=== PATIENT | male | born 2000 | race Two or more races ===

== ENCOUNTER → 2024-05-18 | Outpatient (CLI) | payer BC, SELFPAY ==
[2024-05-18 13:59] LABS: Collection Type, Urine Clean Catch; Squamous Epithelial Cell,Urine 0 /hpf (0-5)
[2024-05-18 14:20] LABS: Basophils % (Auto) 1 % (0-2.5); Eosinophils # (Auto) 0.1 Thou/mm3 (0.0-0.5); Eosinophils % (Auto) 1 % (0-10); Hematocrit 50.9 % (41.0-53.0); Hemoglobin 17.4 g/dL (13.5-16.0); Immature Granulocytes % (Auto) 0 % (0-0); Immature Granulocytes Auto 0.02 Thou/mm3 (0.00-0.00); Lymphocytes # (Auto) 1.8 Thou/mm3 (1.0-4.8); Lymphocytes % (Auto) 35 % (10-50); Mean Corpuscular HGB Conc 34.2 g/dl (31.0-37.0); Mean Corpuscular Hemoglobin 28.4 pg (25.0-35.0); Mean Corpuscular Volume 83 fL (80-100); Monocytes # (Auto) 0.3 Thou/mm3 (0.0-0.8); Monocytes % (Auto) 6 % (0-12); Neutrophils # (Auto) 2.9 Thou/mm3 (1.8-7.7); Neutrophils % (Auto) 57 % (37-80); Nucleated Red Blood Cell % 0 /100 WBC (0); Platelet Count 280 Thou/mm3 (140-440); RDW Standard Deviation 37.2 fL (35.1-43.9); Red Blood Count 6.12 Miln/mm3 (4.50-5.90); White Blood Count 5.1 Thou/mm3 (3.8-10.6)
[2024-05-18 14:25] LABS: Bilirubin,Urine Negative (Negative); Blood,Urine Negative (Negative); Clarity,Urine Clear (Clear/Hazy); Color,Urine Lt-Yellow (Lt Yel-Yel); Culture Indicated,Urine Not Indicated; Glucose, Urine Negative (Negative); Ketones,Urine Negative (Negative); Leukocyte Esterase,Urine Negative (Negative); Nitrite,Urine Negative (Negative); Protein,Urine Negative (Neg - Trace); RBC,Urine 2 /hpf (0-3); Specific Gravity,Urine 1.024 (1.001-1.035); Urobilinogen,Urine Negative mg/dL (0.0-1.0); WBC,Urine 1 /hpf (0-5)
[2024-05-18 14:37] LABS: Vitamin D 25 Hydroxy Total 15.1 ng/mL (7.3-40.2)
[2024-05-18 15:26] LABS: Alanine Aminotransferase 41 U/L (10-49); Alkaline Phosphatase 132 U/L (46-116); Anion Gap 8 (7-16); Aspartate Amino Transferase 22 U/L (0-34); BUN/Creatinine Ratio 13 Ratio (12-20); Blood Urea Nitrogen 17 mg/dL (9-23); Calcium 9.9 mg/dL (8.3-10.6); Calcium (Corrected) 9.9 mg/dL (8.5-10.1); Carbon Dioxide 28.1 mMol/L (20.0-31.0); Chloride 104 mMol/L (98-107); Cholesterol 151 mg/dL (132-200); Creatinine (Component) 1.3 mg/dL (0.6-1.3); Globulin 2.5 gm/dL (2.3-3.5); Glucose 93 mg/dL (74-106); Osmolality,Calculated 280 (275-295); Potassium 4.3 mMol/L (3.4-5.1); Sodium 140 mMol/L (136-145); Thyroid Stimulating Hormone 1.04 uIU/mL (0.55-4.78); Total Protein 7.5 gm/dL (5.7-8.2); Triglycerides 115 mg/dL (30-150); eGFR > 60 See Note
[2024-05-18 19:00] LABS: Cardiac Risk Estimate 4.2 RATIO (4.0-6.7); HDL Cholesterol 36 mg/dL (40-60); LDL Cholesterol,Calculated 92 mg/dL (0-130)
== END | disposition home or self-care (01) ==
PROVIDERS: PCP Family Medicine; Referring Provider Family Medicine; Visit Provider Family Medicine
DX: Z00.00 Encounter for general adult medical examination without abnormal findings (principal); M08.00 Unspecified juvenile rheumatoid arthritis of unspecified site; Z13.0 Encounter for screening for diseases of the blood and blood-forming organs and certain disorders involving the immune mechanism; Z13.29 Encounter for screening for other suspected endocrine disorder; Z13.21 Encounter for screening for nutritional disorder; Z13.1 Encounter for screening for diabetes mellitus
CPT/HCPCS: 36415; 80053; 80061; 81001; 82306; 84443; 85025

== ENCOUNTER 2024-12-27 20:37 | Inpatient (IN) | payer BC, SELFPAY ==
[2024-12-27 20:38] VITALS: BMI 31.6
--- NOTE | 2024-12-27 20:44 | EKG_ITS ---
[facility] Test Date: 2024-12-27 Pat Name: ALBERT READ Department: Room: - Gender: Male Rn Ent: : 2000 Requested By: ED Temporary Provider Order Number: [id number] Reading MD: ED Temporary Provider Measurements Intervals [place] Rate: 97 P: 59 OR: 167 QRS: 94 QRSD: 91 T: 46 QT: 315 QTc: 400 Interpretive Statements SINUS RHYTHM BORDERLINE RIGHT AXIS DEVIATION [QRS AXIS > 90] NONSPECIFIC ST & T-WAVE ABNORMALITY No previous ECG available for comparison /store/S0/[id number].pdf
[2024-12-27 21:01] VITALS: BP 135/81; PULSE 96; RESP 18; TEMP 37.8; O2SAT 99
--- NOTE | 2024-12-27 21:16 | XR_ITS ---
Examination: PA chest single view Technique: Upright PA chest single view Date and time: December 27, 2024 2119 hrs. Indications: Onset chest pain today. Findings: Normal heart size. Lungs are clear. The osseous structures are intact Impression: No active disease.
[2024-12-27 22:01] LABS: Basophils # (Auto) 0.0 Thou/mm3 (0.0-0.2); Basophils % (Auto) 1 % (0-2.5); Eosinophils # (Auto) 0.0 Thou/mm3 (0.0-0.5); Eosinophils % (Auto) 0 % (0-10); Hematocrit 49.1 % (41.0-53.0); Hemoglobin 16.4 g/dL (13.5-16.0); Immature Granulocytes Auto 0.06 Thou/mm3 (0.00-0.00); Lymphocytes # (Auto) 1.0 Thou/mm3 (1.0-4.8); Lymphocytes % (Auto) 12 % (10-50); Mean Corpuscular HGB Conc 33.4 g/dl (31.0-37.0); Mean Corpuscular Hemoglobin 28.8 pg (25.0-35.0); Mean Corpuscular Volume 86 fL (80-100); Monocytes # (Auto) 0.8 Thou/mm3 (0.0-0.8); Monocytes % (Auto) 9 % (0-12); Neutrophils # (Auto) 6.4 Thou/mm3 (1.8-7.7); Neutrophils % (Auto) 77 % (37-80); Nucleated Red Blood Cell # 0.00 Thou/mm3 (0.00-0.00); Nucleated Red Blood Cell % 0 /100 WBC (0); Platelet Count 231 Thou/mm3 (140-440); RDW Standard Deviation 39.8 fL (35.1-43.9); Red Blood Count 5.69 Miln/mm3 (4.50-5.90); White Blood Count 8.3 Thou/mm3 (3.8-10.6)
--- NOTE | 2024-12-27 22:04 | EDNOTE_ITS ---
ED Chest Pain RME/HPI General Chief Complaint: Chest Pain Stated Complaint: CHEST PAIN Time Seen by Provider: 12/27/24 21:15 Arrival date/time: 12/27/24 20:37 RME / HPI RME / HPI narrative: See MDM for Dr. Smith's HPI Documentation. Related Data Allergies Allergy/AdvReac Type Severity Reaction Status Date / Time No Known Allergies Allergy Verified 12/27/24 20:44 Review of Systems Review of Systems Systems Reviewed: All systems reviewed, normal except as documented Past Medical History Surgical History SURGICAL: Positive Abdominal Surgery ED Exam Narrative Physical exam: See MDM for Dr. Smith's Physical Exam Documentation. Course Course Course Narrative: CXR was ordered for determining the etiology of shortness of breath. Quality Measures none Orders Category Date Time Status COVID-19 Screening Questionnaire NOW Care 12/27/24 23:02 Active Decision to Admit X1 Care 12/27/24 23:02 Completed EKG (ED ONLY) *Do not use* NOW Care 12/27/24 20:44 Completed Notify provider NOW Care 12/27/24 22:31 Active Saline [Insert IV] NOW Care 12/27/24 22:29 Active Consult to Cardiology Stat Cons 12/27/24 22:29 Ordered EKG (ED Only) Stat Exams 12/27/24 20:44 Draft XR chest 1V portable Stat Exams 12/27/24 21:16 Completed Alcohol, Blood Medical Stat Lab 12/27/24 21:39 Completed BMP [Basic Metabolic Panel] Stat Lab 12/27/24 21:39 Completed BNP [B-Type Natriuretic Peptide] Stat Lab 12/27/24 21:39 Completed CBC Stat Lab 12/27/24 21:39 Completed D-Dimer Stat Lab 12/27/24 21:39 Completed Drug Screen,Urine Stat Lab 12/28/24 01:30 Received Magnesium Stat Lab 12/27/24 21:39 Completed PT [Prothrombin Time with INR] Stat Lab 12/27/24 21:39 Completed PTT [Partial Thromboplastin Time] Stat Lab 12/27/24 21:39 Completed Thyroid Stimulating Hormone Stat Lab 12/27/24 21:39 Completed Troponin I Stat Lab 12/27/24 21:39 Completed Aspirin Chew Med 12/27/24 22:31 Discontinued 324 mg PO X1 ONE Heparin Inj Med 12/27/24 22:31 Discontinued 2,000 unit IV X1 ONE Heparin/D5w 25K 250 ML Ivpb [Heparin in D5w Ivpb] Med 12/27/24 22:45 Active 25,000 unit in 250 ml IV 9.18 units/kg/hr Metoprolol Tartrate [Lopressor] Med 12/27/24 22:31 Discontinued 12.5 mg PO X1 ONE Nitroglycerin Oint 2% [Nitro-paste Oint 2%] Med 12/27/24 22:31 Discontinued 1 inch TOP X1 ONE Vital Signs Vital signs: Vital Signs Temperature 100.1 F 12/27/24 21:01 Pulse Rate 96 12/27/24 21:01 Respiratory Rate 18 12/27/24 21: Blood Pressure 135/81 H 12/27/24 21: Pulse Oximetry (%) 99 12/27/24 21:01 Oxygen Delivery Method Room Air 12/27/24 21:01 Chest Pain MDM Narrative MDM Narrative:: Scribe Attestation: I, Madison Becerra, am scribing for and in the presence of Dr. Smith. Provider Notation: Although this document has been carefully reviewed, there may still be some phonetic and other typographical errors. These errors are purely grammatical due to imperfections in the software program and should not be construed in any way to compromise the substance of the patient's medical care d uring this visit. This section includes all my notes and documentations, including HPI, PE, and ED course. Vinny Smith MD HPI: 24 y/o male presents with left-sided chest pain for a few hours. Worse with breathing. Reports heaviness. No other complaints. ROS: All negative except as documented in HPI. Physical Exam: General: Alert and oriented. No acute distress when remaining still. Eyes: Conjunctivae and lids clear. ENT: No nasal congestion. Neck: Supple. Heart: RRR. Chest: No tenderness. Lungs: No respiratory distress. Good air movement. No rhonchi, wheezing, rales. Abdomen: Soft and nontender. Skin: Warm and dry. Neuro: Alert and oriented X 3. I reviewed all diagnostic test results: My interpretation of the EKG is: Sinus rhythm (97 bpm) with nonspecific ST-T changes. My interpretation of the chest x-ray is: NAD. Blood tests remarkable for Troponin I: 8.275 At this point, diagnoses include: NSTEMI. Treatment here included: Aspirin Chew 324 mg, Heparin bolus and drip, oral Lopressor 12.5 mg, and Nitro-paste Ointment 2%. Chest pain improved to 0/10. 2226: I discussed the case with Dr. Melvin. About the presentation and exam and diagnostics and treatments here. And need of further care in the hospital. Recommended admission to hospitalist service for further care. I discussed the case with our hospitalist. About the presentation and exam and diagnostics and treatments here. And need of further care in the hospital. Will accept the patient. Vinny Smith MD Patient data External records reviewed:: [facility] previous records (Reviewed prior ED records from 12/17/23. Patient was seen for Cellulitis of gluteal region.) Clinical information provided by:: patient Social determinants that could affect healthcare access:: none Patient has the following chronic illnesses:: None reported. How is presenting disease/condition affected by chronic disease/condition?: no chronic disease Evaluation data The following diagnostics were reviewed and interpreted by me:: lab results, radiology exam(s) and EKG tracing(s) (My interpretation of the EKG is: Sinus rhythm (97 bpm) with nonspecific ST-T changes. Vinny Smith MD) Lab and/or radiology exams considered but not ordered:: None Interpretation Summary: I reviewed all diagnostic test results: My interpretation of the EKG is: Sinus rhythm (97 bpm) with nonspecific ST-T changes. My interpretation of the chest x-ray is: NAD. Blood tests remarkable for Troponin I: 8.275 Medications / Prescriptions Medications or Prescriptions considered but not ordered:: None Medication administrations:: Medication Administration History Acetaminophen (Acetaminophen 325 Mg Tablet) 650 mg PO Q6H PRN PRN Reason: Fever >101.5 Stop: 01/26/25 23:19 Acetaminophen (Acetaminophen 325 Mg Tablet) 650 mg PO Q6H PRN PRN Reason: PAIN SCALE 1-3 (mild Stop: 01/26/25 23:19 Aspirin (Aspirin Ec 81 Mg Tabec) 81 mg PO DAILY [facility] Stop: 01/27/25 08:59 Atorvastatin Calcium (Atorvastatin Calcium 20 Mg Tablet) 80 mg PO HS [facility] Stop: 01/27/25 20:59 Clopidogrel Bisulfate (Clopidogrel Bisulfate 75 Mg Tablet) 75 mg PO QDAY [facility] Stop: 01/27/25 08:59 Heparin Sodium/Dextrose (Heparin In D5w Ivpb) 25,000 unit in 250 mls @ 9.994 mls/hr IV .Q24H [facility]; Protocol Stop: 01/10/25 22:44 Last Admin: 12/28/24 00:28 Dose: 9.18 units/kg/hr, 9.994 mls/hr Documented By: DICK Co-signed By: ELOISA Magnesium Sulfate (Magnesium Sulfate Ivpb) 4 gm in 50 mls @ 12.5 mls/hr IV X1 ONE Stop: 12/28/24 03:22 Last Admin: 12/27/24 23:37 Dose: 12.5 mls/hr Documented By: DICK Metoprolol Tartrate (Metoprolol Tartrate 25 Mg Tablet) 25 mg PO BID [facility] Stop: 01/26/25 23:29 Last Admin: 12/27/24 23:37 Dose: Not Given Documented By: DICK Non-Admin Reason: Duplicate Medication on eMAR Morphine Sulfate (Morphine Sulf Inj 10 Mg/Ml Vial) 2 mg IVP Q2H PRN PRN Reason: PAIN SCALE 7-10 (Severe Stop: 01/01/25 23:19 Oxycodone/Acetaminophen (Oxycodone/Apap 5/325 Tablet) 1 tab PO Q6H PRN PRN Reason: PAIN SCALE 4-6 (Moderate Stop: 01/01/25 23:19 Discontinued Medications Aspirin (Aspirin 81 Mg Chew) 324 mg PO X1 ONE Stop: 12/27/24 22:32 Last Admin: 12/27/24 22:57 Dose: 324 mg Documented By: DICK Aspirin (Aspirin 325 Mg Tablet) 325 mg PO X1 ONE Stop: 12/27/24 23:26 Last Admin: 12/27/24 23:37 Dose: Not Given Documented By: DICK Non-Admin Reason: Duplicate Medication on eMAR Heparin Sodium (Porcine) (Heparin Sod Inj 5000 Unit/Ml Vial) 2,000 unit IV X1 ONE; Protocol Stop: 12/27/24 22:32 Heparin Sodium (Porcine) (Heparin Sod Inj 5000 Unit/Ml Vial) 4,000 unit IV X1 ONE Stop: 12/28/24 01:01 Last Admin: 12/28/24 01:21 Dose: 4,000 unit Documented By: DICK Co-signed By: WALLACE Sodium Chloride (Ns) 1,000 mls @ 60 mls/hr IV .[id number] [facility] Stop: 01/26/25 23:44 Last Admin: 12/27/24 23:38 Dose: 60 mls/hr Documented By: DICK Sodium Chloride (Ns) 2,000 mls @ 999 mls/hr IV .Q2H1M ONE Stop: 12/28/24 01:57 Last Admin: 12/28/24 00:42 Dose: 999 mls/hr Documented By: DICK Metoprolol Tartrate (Metoprolol Tartrate 25 Mg Tablet) 12.5 mg PO X1 ONE Stop: 12/27/24 22:32 Last Admin: 12/27/24 22:57 Dose: 12.5 mg Documented By: DICK Nitroglycerin (Nitroglycerin Oint 2% 1 Inch Packet) 1 inch TOP X1 ONE Stop: 12/27/24 22:32 Last Admin: 12/27/24 22:57 Dose: 1 inch Documented By: DICK Treatment from me here included: Aspirin Chew 324 mg, Heparin bolus and drip, oral Lopressor 12.5 mg, and Nitro-paste Ointment 2%. Consultations Consultation(s) initiated? (list below): Yes Consultation #1 (Physician, Specialty, Details): I discussed the case with Dr. Melvin. About the presentation and exam and diagnostics and treatments here. And need of further care in the hospital. Recommend admission to hospitalist service for further care. Time: 22:26 Consultation #2 (Physician, Specialty, Details): I discussed the case with our hospitalist. About the presentation and exam and diagnostics and treatments here. And need of further care in the hospital. Will accept the patient. Diagnosis Chest Pain Differential Diagnosis: stable angina, unstable angina pectoris, atypical chest pain, st elevation myocardial infarction, costochondritis, chest pain and biliary colic Most likely diagnosis given after review of the tests above:: NSTEMI Admission Indicated Admission indicated?: indicated Explain why admission is indicated or not indicated:: NSTEMI Admission Request Was there a request for admission?: Yes Admission Attestation Admission request attestation: Discussed case with Hospitalist service regarding admission. Discussed patients ED course, exam findings, labs, and radiology results. The Hospitalist [agrees] to accept the patient for admission. Disposition Plan Disposition Plan: Admit Critical Care Time Critical Care Time Critical Care Time: Yes Total Critical Care Time (min.): 36 Attestation: Due to a high probability of clinically significant, life threatening deterioration, the patient required my highest level of preparedness to intervene emergently and I personally spent this critical care time directly and personally managing the patient. This critical care time included obtaining a history; examining the patient; ordering and review of studies; arranging urgent treatment with development of a management plan; evaluation of patient's response to treatment; frequent reassessment; and discussions with family and other providers. It was exclusive of separately billable procedures and treating other patients and teaching time. Vinny Smith MD Discharge Plan Plan Patient Disposition: Admit Acute Care w/in Hospital Problem List Clinical Impression: Non-ST elevation [place] (NSTEMI)
[2024-12-27 22:13] LABS: B-Type Natriuretic Peptide 36 pg/mL (0-100)
[2024-12-27 22:17] LABS: Anion Gap 10 (7-16); BUN/Creatinine Ratio 8 Ratio (12-20); Blood Urea Nitrogen 12 mg/dL (9-23); Calcium 9.2 mg/dL (8.3-10.6); Carbon Dioxide 27.5 mMol/L (20.0-31.0); Chloride 104 mMol/L (98-107); Creatinine (Component) 1.6 mg/dL (0.6-1.3); Estimated Creatinine Clearance 91.3 mL/min (>60); Glucose 95 mg/dL (74-106); Magnesium 1.8 mg/dL (1.6-2.6); Osmolality,Calculated 280 (275-295); Potassium 4.0 mMol/L (3.4-5.1); Sodium 141 mMol/L (136-145); eGFR > 60 See Note
[2024-12-27 22:21] LABS: Troponin I 8.275 ng/mL (0.0-0.045)
[2024-12-27 22:28] LABS: D-Dimer < 250 ng/mL (<600)
[2024-12-27 22:46] VITALS: BP 136/80; PULSE 106; RESP 17; TEMP 37.2; O2SAT 100
[2024-12-27 22:57] VITALS: BP 136/80; PULSE 105; PULSE 108
[2024-12-27] MEDS: NITROGLYCERIN OINT 2% 1 INCH PACKET TOP (22:57)
[2024-12-27] MEDS: ASPIRIN 81 MG CHEW 324 MG PO (22:57)
[2024-12-27] MEDS: METOPROLOL TARTRATE 25 MG TABLET 12.5 MG PO (22:57)
[2024-12-27 23:21] LABS: Alcohol, Blood Medical < 3.0 mg/dL (0-10.0); Thyroid Stimulating Hormone 0.84 uIU/mL (0.55-4.78)
--- NOTE | 2024-12-27 23:31 | ESHP_ITS ---
<Statement entered by Bebe Conway MD - 12/28/24 01:08> Otherwise healthy 24-year-old male with no significant medical history, presenting with typical chest pain, admitted for acute coronary syndrome with troponin around 8, and nonspecific ST changes on EKG. He has been on weekly TESTOSTERONE injection for the last 2 months for work enhancement. Never had similar episodes in the past. No family history of cardiac disease. He admits to using vape for the last 5 years, and occasional alcohol. Denies illicit drug use. Cardiology was consulted and recommended HEPARIN ACS protocol, with likely cath tomorrow. I?ve reviewed the note and agree with the resident's assessment and plan, with the exceptions outlined above. I personally went over the labs, imaging, home medications, and prior records, and examined the patient. The case was also reviewed with the attending physician. Please note: this document was transcribed using voice recognition technology; minor inaccuracies may be present. Bebe Conway DO PGY II Documentation for date of: 12/27/24 HPI History of Present Illness Chief complaint: CHEST PAIN History of present illness: Mr. Mota is a 24-year-old significant past medical history, presented to the ED 12/27/2024 with chief complaint of chest pain. Patient reports a dull retrosternal chest pain that radiates to left arm that occurred after waking up from a evening nap at 7pm. Rates the pain intensity a 7-8/10 lasting about 1 hour. Never had this pain in the past. Patient reported chest pain improved upon arriving to the emergency department. Denies excessive caffeine intake, energy drink, exercise supplement. However, patient has been taking testosterone for the past 2 months 0.5 to 1cc per week. Patient is also endorses shortness of breath but denies lightheadedness, weakness, palpitations, abdominal pain and urinary changes. ED Course: -Initial vitals were BP 133/90, pulse 113, temp 97.8, O2 sat 100% room air -Labs significant for Hgb 16.4, PT 13.4, CR 1.6, troponin 8.275 -Imaging included EKG showed nonspecific ST- T wave abnormality, chest x-ray showed no acute disease. -In the ED, patient was given aspirin 325 mg X1, metoprolol 3.5mg x1, nitroglycerin, magnesium sulfate, 1L NS -Patient was admitted for chest pain workup and management Review of Systems Review of systems otherwise negative except what is mentioned above. Past Medical History: none Family History: Noncontributory Surgical History: Apparently been negative Social History: Denies history of smoking, denies recreational drug use, occasional social drinker Current Medications: (Source: ) Allergies: No known drug allergies Exam Vital Signs Temp Pulse Resp BP Pulse Ox O2 Del Method 99.0 F 105 H 17 136/80 H 100 Room Air 12/27/24 22:46 12/27/24 22:57 12/27/24 22:46 12/27/24 22:57 12/27/24 22:46 12/27/24 22:46 Narrative Exam General: Alert, no acute distress.Conversational and non-toxic appearing. Skin: Warm, dry, intact. No rash or ecchymoses. Head: Normocephalic, atraumatic. Eye: Normal conjunctiva, PERRL. Throat: Oral mucosa moist. No obvious lesions in oropharynx. Cardiovascular: Regular rate and rhythm, no murmur, +S1/S2. Respiratory: Lungs are clear to auscultation, respirations unlabored, no crackles, no wheezing. Gastrointestinal: Soft, nontender, non-distended. No guarding or rebound tenderness. Extremities: No edema, no cyanosis, no clubbing. Neuro: Alert and oriented x3.No focal deficits observed. Conversant, moving all extremities. No overt cerebellar signs/incoordination. Psychiatric: Cooperative, appropriate affect Results: Labs 12/27/24 21:39 12/27/24 21:39 Labs: Short CBC 12/27/24 Range/Units 21:39 WBC 8.3 (3.8-10.6) Thou/mm3 Hgb 16.4 H (13.5-16.0) g/dL Hct 49.1 (41.0-53.0) % Plt Count 231 (140-440) Thou/mm3 BMP 12/27/24 21:39 Sodium 141 Potassium 4.0 Chloride 104 Carbon Dioxide 27.5 BUN 12 Creatinine 1.6 H Glucose 95 Calcium 9.2 Cardiac Enzymes 12/27/24 Range/Units 21:39 Troponin I 8.275 H* (0.0-0.045) ng/mL Quality Measures Quality Measures none Medications Home Medications and Allergies Home Medications ?Medication ?Instructions ?Recorded ?Confirmed ?Type methocarbamol 750 mg tablet 750 mg PO QID PRN muscle s pasm 12/28/24 12/28/24 History Allergies Allergy/AdvReac Type Severity Reaction Status Date / Time No Known Allergies Allergy Verified 12/27/24 20:44 Visit Medications Acetaminophen (Acetaminophen 325 Mg Tablet) 650 mg PO Q6H PRN PRN Reason: Fever >101.5 Stop: 01/26/25 23:19 Acetaminophen (Acetaminophen 325 Mg Tablet) 650 mg PO Q6H PRN PRN Reason: PAIN SCALE 1-3 (mild Stop: 01/26/25 23:19 Aspirin (Aspirin 325 Mg Tablet) 325 mg PO X1 ONE Stop: 12/27/24 23:26 Aspirin (Aspirin Ec 81 Mg Tabec) 81 mg PO DAILY [facility] Stop: 01/27/25 08:59 Atorvastatin Calcium (Atorvastatin Calcium 20 Mg Tablet) 80 mg PO HS [facility] Stop: 01/27/25 20:59 Clopidogrel Bisulfate (Clopidogrel Bisulfate 75 Mg Tablet) 75 mg PO QDAY [facility] Stop: 01/27/25 08:59 Heparin Sodium (Porcine) (Heparin Sod Inj 5000 Unit/Ml Vial) 2,000 unit IV X1 ONE; Protocol Stop: 12/27/24 22:32 Heparin Sodium/Dextrose (Heparin In D5w Ivpb) 25,000 unit in 250 mls @ 13.063 mls/hr IV .Q19H9M [facility]; Protocol Stop: 01/10/25 22:44 Magnesium Sulfate (Magnesium Sulfate Ivpb) 4 gm in 50 mls @ 12.5 mls/hr IV X1 ONE Stop: 12/28/24 03:22 Metoprolol Tartrate (Metoprolol Tartrate 25 Mg Tablet) 25 mg PO BID [facility] Stop: 01/26/25 23:29 Morphine Sulfate (Morphine Sulf Inj 10 Mg/Ml Vial) 2 mg IVP Q2H PRN PRN Reason: PAIN SCALE 7-10 (Severe Stop: 01/01/25 23:19 Oxycodone/Acetaminophen (Oxycodone/Apap 5/325 Tablet) 1 tab PO Q6H PRN PRN Reason: PAIN SCALE 4-6 (Moderate Stop: 01/01/25 23:19 Discontinued Medications Aspirin (Aspirin 81 Mg Chew) 324 mg PO X1 ONE Stop: 12/27/24 22:32 Last Admin: 12/27/24 22:57 Dose: 324 mg Metoprolol Tartrate (Metoprolol Tartrate 25 Mg Tablet) 12.5 mg PO X1 ONE Stop: 12/27/24 22:32 Last Admin: 12/27/24 22:57 Dose: 12.5 mg Nitroglycerin (Nitroglycerin Oint 2% 1 Inch Packet) 1 inch TOP X1 ONE Stop: 12/27/24 22:32 Last Admin: 12/27/24 22:57 Dose: 1 inch Assessment & Plan Plan Mr. Mota is a 24-year-old significant past medical history, presented to the ED 12/27/2024 with chief complaint of chest pain for 1 day. Admitted for ACS work up and management. #Acute chest pain, rule out ACS #NSTEMI type I vs type II #Elevated troponin NSTEMI VS vasospastic angina Chest pain is likely due vasospasm angina, as the patient symptoms occurred after rest and he is young adult without typical atherosclerosis risk factors. Likely NSTEMI type II patient history exogenous testosterone use which can cause polycytemia, pro-thrombotic state and potentially vasospasm, all which may contribute to increase myocardial oxygen demand which may lead to myocardial ischemia. On admission: Troponin was 8.275 . EKG showed nonspecific ST- T wave abnormality. Patient presented with retrosternal dull chest pain that improved an admission. Plan ? Started HEPARIN drip ACS protocol ? Started PLAVIX 75 mg daily -Trend troponins -Cardiac echo -Cardiology consulted , appreciate recommendations - aspirin 81 mg p.o. daily, - Atorvastatin 80 mg p.o. -Lipid panel -Hemoglobin A1c -TSH level -Follow-up urinalysis - Maintain potassium >4.0 and magnesium >2.0 # Acute kidney injury, likely pre-renal On admission creatinine 1.6 (baseline 1.1). SKYLAR likely pre-renal secondary to dehydration. Plan - Started IV NS hydration -Avoid nephrotoxins -Monitor renal panel #Polycythemia #Steroid Abuse Nancy has been taking Testesterone for 2 months for body building Explained risks and complications of Testosterone use. Advised to immediately stop recreational use. Hospital management: Lines: peripheral IV Diet: regular GI prophylaxis: none DVT prophylaxis: HEPARIN Disposition: tele for NSTEMI workup and management. CODE STATUS: Full code Patient seen and assessed under supervision of attending physician and discuss with senior resident Dr. Conway PGY-2 Benita David MD PGY-1, Internal Medicine Attending Provider Attestation/Addendum After examination of the patient and review of the clinical data I feel that this patient needs admission to the hospital for further treatment/evaluation. I Solo Garcia MD, attest that I was physically present for roque portions of evaluation, and examined patient, labs and imagings and plan of care were discussed with IM residents team, and I agree with the findings and plans documented above.
[2024-12-27] MEDS: Magnesium Sulfate 4 GM Ivpb 4 GM/50 ML BAG IV (23:37)
[2024-12-27] MEDS: SODIUM CHLORIDE 0.9% 1000 ML 1,000 ML 60 ML IV (23:38)
[2024-12-27 23:47] LABS: INR 1.2 (0.9-1.3); Partial Thromboplastin Time 28.4 Seconds (22.0-36.0); Prothrombin Time 13.4 Seconds (9.0-12.2)
[2024-12-28] VITALS (18 sets, daily range): BP systolic 97–136; BP diastolic 51–81; PULSE 75–100; RESP 12–98; TEMP 36.4–38.1; O2SAT 95–99; BMI 31.8
[2024-12-28 00:19] LABS: Troponin I 8.323 ng/mL (0.0-0.045)
[2024-12-28] MEDS: Heparin/D5w 25K 250 ML Ivpb 25,000 UNIT/250 ML BAG 9.994 UNIT IV (00:28)
[2024-12-28] MEDS: SODIUM CHLORIDE 0.9% 1000 ML 2,000 ML 999 ML IV (00:42)
[2024-12-28] MEDS: HEPARIN SOD INJ 5000 UNIT/ML VIAL 4000 UNIT IV (01:21)
[2024-12-28 01:51] LABS: Collection Type, Urine Clean Catch; Squamous Epithelial Cell,Urine 0 /hpf (0-5); WBC,Urine 0 /hpf (0-5)
[2024-12-28 02:04] LABS: Amorphous Crystals,Urine Present (Absent); Bilirubin,Urine Negative (Negative); Blood,Urine Negative (Negative); Clarity,Urine Clear (Clear/Hazy); Color,Urine Yellow (Lt Yel-Yel); Glucose, Urine Negative (Negative); Ketones,Urine Negative (Negative); Leukocyte Esterase,Urine Negative (Negative); Nitrite,Urine Negative (Negative); PH,Urine 6.5 (5.0-7.0); Protein,Urine Trace (Neg - Trace); RBC,Urine 1 /hpf (0-3); Specific Gravity,Urine 1.032 (1.001-1.035); Urobilinogen,Urine 3.0 mg/dL (0.0-1.0)
[2024-12-28 03:04] LABS: Amphetamine/Methamp Scrn,U Negative (Negative); Barbiturate Screen,Urine Negative (Negative); Benzodiazepines Screen,Urine Negative (Negative); Benzoylecgonine Screen, Ur Negative (Negative); Fentanyl Screen,Urine Negative (Negative); Opiate Screen,Urine Negative (Negative); THC Screen,Urine Negative (Negative)
[2024-12-28 06:37] LABS: Basophils # (Auto) 0.0 Thou/mm3 (0.0-0.2); Basophils % (Auto) 1 % (0-2.5); Eosinophils # (Auto) 0.0 Thou/mm3 (0.0-0.5); Eosinophils % (Auto) 1 % (0-10); Hematocrit 45.6 % (41.0-53.0); Hemoglobin 15.3 g/dL (13.5-16.0); Immature Granulocytes Auto 0.07 Thou/mm3 (0.00-0.00); Lymphocytes # (Auto) 1.8 Thou/mm3 (1.0-4.8); Lymphocytes % (Auto) 24 % (10-50); Mean Corpuscular HGB Conc 33.6 g/dl (31.0-37.0); Mean Corpuscular Hemoglobin 29.1 pg (25.0-35.0); Mean Corpuscular Volume 87 fL (80-100); Monocytes # (Auto) 1.0 Thou/mm3 (0.0-0.8); Monocytes % (Auto) 13 % (0-12); Neutrophils # (Auto) 4.8 Thou/mm3 (1.8-7.7); Neutrophils % (Auto) 61 % (37-80); Nucleated Red Blood Cell # 0.00 Thou/mm3 (0.00-0.00); Nucleated Red Blood Cell % 0 /100 WBC (0); Platelet Count 193 Thou/mm3 (140-440); RDW Standard Deviation 40.3 fL (35.1-43.9); Red Blood Count 5.26 Miln/mm3 (4.50-5.90); White Blood Count 7.8 Thou/mm3 (3.8-10.6)
[2024-12-28 06:53] LABS: Glucose Estimated Average 103 mg/dL (80-131); Hemoglobin A1C 5.2 % Hgb (4.8-6.0)
[2024-12-28 06:58] LABS: Partial Thromboplastin Time 33.3 Seconds (22.0-36.0)
[2024-12-28 07:04] LABS: Alanine Aminotransferase 27 U/L (10-49); Albumin, Serum 3.9 gm/dL (3.5-5.0); Albumin/Globulin Ratio 2.0 (1.2-2.2); Alkaline Phosphatase 93 U/L (46-116); Anion Gap 8 (7-16); Aspartate Amino Transferase 52 U/L (0-34); BUN/Creatinine Ratio 8 Ratio (12-20); Bilirubin,Total 0.8 mg/dL (0.3-1.2); Blood Urea Nitrogen 10 mg/dL (9-23); Calcium 8.7 mg/dL (8.3-10.6); Calcium (Corrected) 8.8 mg/dL (8.5-10.1); Carbon Dioxide 27.2 mMol/L (20.0-31.0); Cardiac Risk Estimate 5.3 RATIO (4.0-6.7); Chloride 106 mMol/L (98-107); Cholesterol 121 mg/dL (132-200); Creatinine (Component) 1.2 mg/dL (0.6-1.3); Estimated Creatinine Clearance 122.0 mL/min (>60); Globulin 2.0 gm/dL (2.3-3.5); Glucose 98 mg/dL (74-106); HDL Cholesterol 23 mg/dL (40-60); LDL Cholesterol,Calculated 73 mg/dL (0-130); Magnesium 2.0 mg/dL (1.6-2.6); Osmolality,Calculated 280 (275-295); Phosphorous 2.9 mg/dL (2.4-5.1); Potassium 4.2 mMol/L (3.4-5.1); Sodium 141 mMol/L (136-145); Total Protein 5.9 gm/dL (5.7-8.2); Triglycerides 125 mg/dL (30-150); eGFR > 60 See Note
[2024-12-28 07:11] LABS: Troponin I 8.237 ng/mL (0.0-0.045)
[2024-12-28] MEDS: HEPARIN SOD INJ 5000 UNIT/ML VIAL 4000 UNIT IVP (07:25)
--- NOTE | 2024-12-28 07:33 | ESCONSULT_ITS ---
HPI Data of Consult Requesting Physician: Solo Garcia MD Primary Care Provider: Eric Bonilla MD Consult Narrative History of present illness: This is a is a 24-year-old with no significant past medical history Patient was seen in the emergency room with precordial chest pain pressure heaviness sensation over the retrosternal region Initial EKG does not show any acute ST-T wave changes So far troponin peaked at 8 cardiology consultation requested Currently patient denies any chest pain appears comfortable No prior cardiac history noted patient is not on any home medication cc:: cc: Solo Garcia MD Meds Home Medications and Allergies Home Medications ?Medication ?Instructions ?Recorded ?Confirmed ?Type methocarbamol 750 mg tablet 750 mg PO QID PRN muscle s pasm 12/28/24 12/28/24 History Allergies Allergy/AdvReac Type Severity Reaction Status Date / Time No Known Allergies Allergy Verified 12/27/24 20:44 Exam Vital Signs Temp Pulse Resp BP Pulse Ox O2 Del Method 98.9 F 79 21 H 113/51 L 97 Room Air 12/28/24 04:00 12/28/24 04:00 12/28/24 04:00 12/28/24 04:00 12/28/24 04:00 12/28/24 04:00 Routine HEENT Exam Head: Present normocephalic and atraumatic Eye: Present EOMI and PERRL ENT: Present mucous membranes moist Routine Neck Exam Neck: Present supple and trachea midline Routine Respiratory Exam Respiratory: Present chest non-tender, lungs clear, normal breath sounds and no resp distress Routine Cardiovascular Exam Cardiovascular: Present RRR Routine Abdominal Exam Abdominal: Present soft and normoactive bowel sounds Routine Extremities Exam Extremities: Present full ROM Routine Skin Exam Skin: Present intact, dry and warm Routine Neurological Exam Neurological: Present alert, oriented X3 and CN II-XII intact Routine Psychiatric Exam Psychiatric: Present normal affect and normal thought process Results Labs 12/28/24 06:18 12/28/24 06:18 Labs: Short CBC 12/27/24 12/28/24 Range/Units 21:39 06:18 WBC 8.3 7.8 (3.8-10.6) Thou/mm3 Hgb 16.4 H 15.3 (13.5-16.0) g/dL Hct 49.1 45.6 (41.0-53.0) % Plt Count 231 193 D (140-440) Thou/mm3 BMP 12/27/24 12/28/24 21:39 06:18 Sodium 141 141 Potassium 4.0 4.2 Chloride 104 106 Carbon Dioxide 27.5 27.2 BUN 12 10 Creatinine 1.6 H 1.2 Glucose 95 98 Calcium 9.2 8.7 Cardiac Enzymes 12/27/24 12/27/24 12/28/24 Range/Units 21:39 23:50 06:18 Troponin I 8.275 H* 8.323 H* 8.237 H* (0.0-0.045) ng/mL Liver Function 12/28/24 Range/Units 06:18 Total Bilirubin 0.8 (0.3-1.2) mg/dL AST 52 H (0-34) U/L ALT 27 (10-49) U/L Alkaline Phosphatase 93 (46-116) U/L Albumin 3.9 (3.5-5.0) gm/dL Urine 12/28/24 Range/Units 01:30 Urine Color Yellow (Lt Yel-Yel) Urine Clarity Clear (Clear/Hazy) Urine pH 6.5 (5.0-7.0) Ur Specific [place] 1.032 (1.001-1.035) Urine Protein Trace (Neg - Trace) Urine Glucose (UA) Negative (Negative) Assessment and Plan Assessment and plan (1) Non-ST elevation [place] (NSTEMI): Status: Acute (2) Chest pain: Status: Acute (3) Coronary artery disease: Status: Acute Additional Assessment & Plan Additional Plan: Patient was admitted with chest pain 7 out of 10 intensity So far troponin peaked at 8 EKG does not show any acute ST-T wave changes Recommend echocardiographic exam We will plan for cardiac catheterization and coronary angiogram
--- NOTE | 2024-12-28 07:44 | ESPR_ITS ---
<Statement entered by Catie Aguilera MD - 12/28/24 16:49> Patient seen and examined at bedside. Patient denies any chest pain or numbness in his left arm. Patient does state he uses testosterone a few times however denies any strong cardiac family history. Patient states that his chest pain and numbness woke him up from his sleep last night, and this was the first time he experienced this. Troponin peaked at 8.237 and now down trended to 1.2. Patient is pending echocardiogram with Dr. Melvin as well as echocardiogram. Will continue with aspirin, atorvastatin, Plavix, heparin drip, until further cardiac recommendations. I discussed with and supervised the spring intern physician who took care of this patient. I personally saw and examined the patient and discussed the assessment and plan with the entire medicine team, including my attending Dr. Olivas, I agree with most of the assessment and plan as documented below Catie Aguilera M.D. PGY-3 Disclaimer: Despite multiple revisions, due to the dictation software being used, the document bellow may not be free of grammatical errors including phonetic/typographic errors. However, this does not deter from our commitment to providing health care in the patient's best interest in mind. <Statement entered by Alicia Plaza MD - 12/28/24 14:47> Note reviewed, I agree with most of its contents and agree with the patient's care as documented by Dr. Butterfield. Patient examined at bedside. Has no major complaints states that he has complete resolution of initial resenting symptoms. Creatinine down trended since admission to 1.2, troponins peaked at 8.237. No new onset of chest pain or shortness of breath. Was lying comfortably in bed. Father was at bedside who denied any significant cardiac family history. Patient denies any symptoms like this in the past and is typically physically active with going to the gym. Chest pain had started in the evening and woke him from sleep. He denies any illicit drug use or excessive drinking or smoking. Does endorse testosterone use which may be a risk factor to ACS. Cardiology Dr. Melvin was consulted. Patient will undergo coronary angiogram this afternoon. Echo is also pending. Continue aspirin, atorvastatin, Plavix, heparin drip. The patient's management plan was discussed with my attending physician Dr. Olivas. Alicia Plaza, PGY-2 Documentation for date of: 12/28/24 Subjective Subjective Interval history: 12/28/24: No acute events overnight. Vital signs stable. Patient was examined and evaluated at bedside. Patient states that he woke up from his evening nap yesterday around 7 pm with sharp left sided chest pain with radiation to left arm which all resolved prior to his ED arrival. Patient and father at bedside denied any family history of cardiac pathologies. Patient remains asymptomatic with no chest pain or dyspnea. Unremarkable physical exam. Exam Vital Signs Temp Pulse Resp BP Pulse Ox O2 Del Method 98.9 F 79 21 H 113/51 L 97 Room Air 12/28/24 04:00 12/28/24 04:00 12/28/24 04:00 12/28/24 04:00 12/28/24 04:00 12/28/24 04:00 Narrative Exam General: Alert, no acute distress.Conversational and non-toxic appearing. Skin: Warm, dry, intact. No rash or ecchymoses. Head: Normocephalic, atraumatic. Eye: Normal conjunctiva, PERRL. Throat: Oral mucosa moist. No obvious lesions in oropharynx. Cardiovascular: Regular rate and rhythm, no murmur, +S1/S2. Respiratory: Lungs are clear to auscultation, respirations unlabored, no crackles, no wheezing. Gastrointestinal: Soft, nontender, non-distended. No guarding or rebound tenderness. Extremities: No edema, no cyanosis, no clubbing. Neuro: Alert and oriented x3.No focal deficits observed. Conversant, moving all extremities. No overt cerebellar signs/incoordination. Psychiatric: Cooperative, appropriate affect Objective Labs 12/29/24 05:18 12/29/24 05:18 Labs: Laboratory Results - last 24 hr 12/27/24 12/27/24 12/28/24 21:39 23:50 01:30 WBC 8.3 RBC 5.69 Hgb 16.4 H Hct 49.1 MCV 86 MCH 28.8 MCHC 33.4 RDW Std Deviation 39.8 Plt Count 231 Neut % (Auto) 77 Lymph % (Auto) 12 [place] % (Auto) 9 Eos % (Auto) 0 Baso % (Auto) 1 Neut # (Auto) 6.4 Lymph # (Auto) 1.0 [place] # (Auto) 0.8 Eos # (Auto) 0.0 Baso # (Auto) 0.0 Immature Gran # (Auto) 0.06 H Absolute Nucleated RBC 0.00 Immature Gran % 1 H Nucleated RBC % 0 PT 13.4 H INR 1.2 APTT 28.4 D-Dimer < 250 Sodium 141 Potassium 4.0 Chloride 104 Carbon Dioxide 27.5 Anion Gap 10 BUN 12 Creatinine 1.6 H Estim Creat Clear Calc 91.3 eGFR > 60 BUN/Creatinine Ratio 8 L Glucose [address] Glu mg/dL Hemoglobin A1c Calculated Osmolality 280 Calcium 9.2 Corrected Calcium Phosphorus Magnesium 1.8 Total Bilirubin AST ALT Alkaline Phosphatase Troponin I 8.275 H* 8.323 H* B-Natriuretic Peptide 36 Total Protein Albumin Globulin Albumin/Globulin Ratio Triglycerides Cholesterol LDL Cholesterol, Calc HDL Cholesterol Cholesterol/HDL Ratio TSH 0.84 Ur Collection Type Clean Catch Urine Color Yellow Urine Clarity Clear Urine pH 6.5 Ur Specific [place] 1.032 Urine Protein Trace Urine Glucose (UA) Negative Urine Ketones Negative Urine Blood Negative Urine Nitrite Negative Urine Bilirubin Negative Urine Urobilinogen (Auto) 3.0 Ur Leukocyte Esterase Negative Urine RBC 1 Urine WBC 0 Ur Squamous Epith Cells 0 Amorphous Crystals Present A Urine Bacteria None Urine Opiates Screen Negative Urine Fentanyl Screen Negative Ur Barbiturates Screen Negative U Amphetamin/Meth Scrn Negative U Benzodiazepines Scrn Negative U Cocaine Metab Screen Negative U Marijuana (THC) Screen Negative Ethyl Alcohol < 3.0 12/28/24 06:18 WBC 7.8 RBC 5.26 Hgb 15.3 Hct 45.6 MCV 87 MCH 29.1 MCHC 33.6 RDW Std Deviation 40.3 Plt Count 193 D Neut % (Auto) 61 Lymph % (Auto) 24 [place] % (Auto) 13 H Eos % (Auto) 1 Baso % (Auto) 1 Neut # (Auto) 4.8 Lymph # (Auto) 1.8 [place] # (Auto) 1.0 H Eos # (Auto) 0.0 Baso # (Auto) 0.0 Immature Gran # (Auto) 0.07 H Absolute Nucleated RBC 0.00 Immature Gran % 1 H Nucleated RBC % 0 PT INR APTT 33.3 D-Dimer Sodium 141 Potassium 4.2 Chloride 106 Carbon Dioxide 27.2 Anion Gap 8 BUN 10 Creatinine 1.2 Estim Creat Clear Calc 122.0 eGFR > 60 BUN/Creatinine Ratio 8 L Glucose [address] Glu mg/dL 103 Hemoglobin A1c 5.2 Calculated Osmolality 280 Calcium 8.7 Corrected Calcium 8.8 Phosphorus 2.9 Magnesium 2.0 Total Bilirubin 0.8 AST 52 H ALT 27 Alkaline Phosphatase 93 Troponin I 8.237 H* B-Natriuretic Peptide Total Protein 5.9 Albumin 3.9 Globulin 2.0 L Albumin/Globulin Ratio 2.0 Triglycerides 125 Cholesterol 121 L LDL Cholesterol, Calc 73 HDL Cholesterol 23 L Cholesterol/HDL Ratio 5.3 TSH Ur Collection Type Urine Color Urine Clarity Urine pH Ur Specific [place] Urine Protein Urine Glucose (UA) Urine Ketones Urine Blood Urine Nitrite Urine Bilirubin Urine Urobilinogen (Auto) Ur Leukocyte Esterase Urine RBC Urine WBC Ur Squamous Epith Cells Amorphous Crystals Urine Bacteria Urine Opiates Screen Urine Fentanyl Screen Ur Barbiturates Screen U Amphetamin/Meth Scrn U Benzodiazepines Scrn U Cocaine Metab Screen U Marijuana (THC) Screen Ethyl Alcohol Quality Measures Quality Measures none Assessment & Plan Assessment Current Active Medications: Generic Name Dose Route Start Last Admin Trade Name Freq PRN Reason Stop Dose Admin Acetaminophen 650 mg 12/27/24 23:20 Acetaminophen 325 Mg Tablet PO 01/26/25 23:19 Q6H PRN Fever >101.5 Acetaminophen 650 mg 12/27/24 23:20 Acetaminophen 325 Mg Tablet PO 01/26/25 23:19 Q6H PRN PAIN SCALE 1-3 (mild Aspirin 81 mg 12/28/24 09:00 Aspirin Ec 81 Mg Tabec PO 01/27/25 08:59 DAILY [facility] Atorvastatin Calcium 80 mg 12/28/24 21:00 Atorvastatin Calcium 20 Mg Tablet PO 01/27/25 20:59 HS [facility] Clopidogrel Bisulfate 75 mg 12/28/24 09:00 Clopidogrel Bisulfate 75 Mg Tablet PO 01/27/25 08:59 QDAY [facility] Heparin Sodium/Dextrose 25,000 unit in 250 mls @ 9.994 mls/hr 12/27/24 22:45 12/28/24 07:30 Heparin In D5w Ivpb IV 01/10/25 22:44 13.18 units/kg/hr .Q24H BRAYDON 14.348 mls/hr Titration Protocol 9.18 UNITS/KG/HR Metoprolol Tartrate 25 mg 12/27/24 23:30 12/27/24 23:37 Metoprolol Tartrate 25 Mg Tablet PO 01/26/25 23:29 Not Given BID BRAYDON Morphine Sulfate 2 mg 12/27/24 23:20 Morphine Sulf Inj 10 Mg/Ml Vial IVP 01/01/25 23:19 Q2H PRN PAIN SCALE 7-10 (Severe Oxycodone/Acetaminophen 1 tab 12/27/24 23:20 Oxycodone/Apap 5/325 Tablet PO 01/01/25 23:19 Q6H PRN PAIN SCALE 4-6 (Moderate Plan Mr. Mota is a 24-year-old male with no PMH, presented to the ED 12/27/2024 with chief complaint of chest pain with radiation to L arm that woke him up from his evening nap a few hours prior to ED arrival. Symptoms resolved by the time patient arrived to the ED. Admitted for ACS work up and management. #Acute chest pain #NSTEMI type I vs type II #Troponimia Likely NSTEMI type II patient history exogenous testosterone use which can cause polycytemia, pro-thrombotic state and potentially vasospasm, all which may contribute to increase myocardial oxygen demand which may lead to myocardial ischemia. On admission: Troponin was 8.3 with repeat of 8.2 . EKG showed nonspecific ST- T wave abnormality. Lipid panel unremarkable. A1C 5.2. TSH 0.84. UDS negative. Patient remains asymptomatic with stable vital signs. Plan - Continue heparin drip - Continue Plavix 75 mg daily - Pending TTE - Plan for blood bank laboratory professional today - Continue aspirin 81 mg p.o. daily, - Continue Atorvastatin 80 mg p.o. - Maintain potassium >4.0 and magnesium >2.0 # Acute kidney injury, likely pre-renal (resolved) On admission creatinine 1.6 (baseline 1.1) which improved to 1.2. SKYLAR likely pre-renal secondary to dehydration. Plan - Continue IV NS hydration -Avoid nephrotoxins -Monitor renal panel #Polycythemia #Steroid Abuse Patient has been taking Testesterone for 2 months for body building Explained risks and complications of Testosterone use. Hospital management: Lines: peripheral IV Diet: NPO GI prophylaxis: none DVT prophylaxis: Heparin Disposition: tele for NSTEMI workup and management. CODE STATUS: Full code Plan was discussed with attending physician Dr. Olivas and senior residents Drs. Aguilera and Bola. Alis Butterfield DO PGY-1 Attending Provider Attestation/Addendum I have examined the patient, reviewed labs and imaging findings, discussed the case with the resident(s), and reviewed entered orders. I agree with the plan of care as outlined in this note, with these additional summaries/recommendations: Patient seen at bedside. No acute overnight events. He has no new symptoms to report. Continue dual antiplatelet therapy with aspirin and Plavix for possible NSTEMI. Continue high intensity statin. Continue heparin gtt. for anticoagulation and target APTT of 60 to 80 seconds. In-house cardiology following and patient will go for cardiac catheterization today. Troponin peaked at 8.323. LDL 73. Chest x-ray negative. Continue metoprolol for cardiac remodeling prevention. He does not appear to have any cardiovascular risk factors except taking testosterone replacement which patient was advised to discontinue completely. Continue to monitor hemodynamics closely. Patient will go for cardiac catheterization. Patient updated on the plan and in agreement. All questions answered to satisfaction. Please see residents note for additional details of management. Dr. Deisy MD
--- NOTE | 2024-12-28 08:58 | PC.SS ---
Rounding: Pending heart cath today, DC plan home
[2024-12-28] MEDS: METOPROLOL TARTRATE 25 MG TABLET PO ×2 (09:09→20:35)
[2024-12-28] MEDS: ASPIRIN EC 81 MG TABEC PO (09:13)
[2024-12-28] MEDS: CLOPIDOGREL BISULFATE 75 MG TABLET PO (09:13)
[2024-12-28 10:06] LABS: INR 1.3 (0.9-1.3); Prothrombin Time 13.9 Seconds (9.0-12.2)
--- NOTE | 2024-12-28 10:53 | PCS.ST ---
Abdelrahman Mota is a 24 year-old male admitted to [facility] for Chest Pain. SS conducted bedside contact with the patient to complete initial assessment and to discuss discharge planning. Role and reason explained. Patient confirmed demographic information. Patient lives with his parents and identifies his parents mother Vanita Mota [phone]/ father Abdelrahman Mota [phone] as his surrogate decision maker. Pt states he is able to complete all ADL?s independent. Pt does not possesses any DME. Pts PCP is Chad. Pharmacy of choice is [facility]. Discharge options discussed and the pt wishes to return home.? Pt fam will provide transport. No further intervention required at this time, older adult social work specialist would be available to address any further concerns. DC Plan: Home Contact: Mother/Father Address: Confirmed on face sheet PCP: Chad
[2024-12-28 12:49] LABS: Partial Thromboplastin Time 38.2 Seconds (22.0-36.0)
[2024-12-28 12:50] LABS: Troponin I 6.418 ng/mL (0.0-0.045)
--- NOTE | 2024-12-28 12:59 | PC.SS ---
Abdelrahman Mota is a 24 year-old male admitted to [facility] for Chest Pain. SS conducted bedside contact with the patient to complete initial assessment and to discuss discharge planning. Role and reason explained. Patient confirmed demographic information. Patient lives with his parents and identifies his parents mother Vanita Mota [phone]/ father Abdelrahman Mota [phone] as his surrogate decision maker. Pt states he is able to complete all ADL?s independent. Pt does not possesses any DME. Pts PCP is Chad. Pharmacy of choice is [id number]. Discharge options discussed and the pt wishes to return home. Pt fam will provide transport. No further intervention required at this time, hospice social worker would be available to address any further concerns. DC plan: Home DM: Mom/Dad
--- NOTE | 2024-12-28 15:50 | ESOP_ITS ---
Cardiac Cath Procedure Procedure Narrative Date of the procedure 12/28/2024 Title of the procedure 1.left heart catheterization 2.left coronary angiogram 3.right coronary angiogram 4.left ventriculogram 5.conscious sedation 6.radiographic interpretation supervision 7.ultrasound guidance for right radial access Indication for the procedure This is a 24-year-old gentleman with no significant past medical history He was admitted with chest pain He ruled in for non-ST elevation SC Peak troponin was 8 Cardiac catheter and coronary angiogram recommended Procedure This was done in the cardiac lab under current electrocardiographic monitoring Intermittent blood pressure monitoring right radial access obtained using modified Seldinger technique and ultrasound guidance 6 [place] sheath was placed TIG 4 catheter was used for selective engagement of the left coronary artery TIG 4 catheter was used for selective images right coronary artery TIG 4 catheter used for left ventriculogram Hemodynamics Overall left regular systolic function appears normal Approximate ejection fraction 55% End-diastolic pressure was 16 mm. There is no gradient across the aortic valve Coronary anatomy 1.right coronary is a dominant system 2.left main coronary artery appears normal 3.left anterior descending artery does not seem to have any significant lesion 4.diagonal shows luminal regularities 5.circumflex appears normal 6.obtuse marginal does not have any significant lesion 7.right coronary is a dominant vessel no significant lesion noted 8.PDA appears normal Conclusion No significant coronary artery disease Continue medical management
--- NOTE | 2024-12-28 17:27 | PC.LAC ---
Report given to EAMON Alvarado. VSS. Pt A&O x4. Dressing to right wrist clean, dry, and intact. Patient being transferred to tele via [facility].
[2024-12-28 19:34] LABS: Partial Thromboplastin Time 28.8 Seconds (22.0-36.0)
[2024-12-28] MEDS: ATORVASTATIN CALCIUM 20 MG TABLET 80 MG PO (20:35)
[2024-12-28] MEDS: MELATONIN 3 MG TABLET PO (20:36)
[2024-12-29] VITALS (9 sets, daily range): BP systolic 97–122; BP diastolic 56–78; PULSE 48–106; RESP 17–99; TEMP 36–36.9; O2SAT 97–99; BMI 31.8
--- NOTE | 2024-12-29 05:12 | PC.NURSE ---
Dr. David notified regarding patient dropping HR 49 and 50s, and now in the 70s, patient asymptomatic. No new orders at this time.
[2024-12-29 06:12] LABS: Basophils # (Auto) 0.1 Thou/mm3 (0.0-0.2); Basophils % (Auto) 1 % (0-2.5); Eosinophils # (Auto) 0.1 Thou/mm3 (0.0-0.5); Eosinophils % (Auto) 1 % (0-10); Hematocrit 47.2 % (41.0-53.0); Hemoglobin 15.9 g/dL (13.5-16.0); Immature Granulocytes Auto 0.07 Thou/mm3 (0.00-0.00); Lymphocytes # (Auto) 1.8 Thou/mm3 (1.0-4.8); Lymphocytes % (Auto) 23 % (10-50); Mean Corpuscular HGB Conc 33.7 g/dl (31.0-37.0); Mean Corpuscular Hemoglobin 29.2 pg (25.0-35.0); Mean Corpuscular Volume 87 fL (80-100); Monocytes # (Auto) 1.4 Thou/mm3 (0.0-0.8); Monocytes % (Auto) 17 % (0-12); Neutrophils # (Auto) 4.4 Thou/mm3 (1.8-7.7); Neutrophils % (Auto) 57 % (37-80); Nucleated Red Blood Cell # 0.00 Thou/mm3 (0.00-0.00); Nucleated Red Blood Cell % 0 /100 WBC (0); Platelet Count 196 Thou/mm3 (140-440); RDW Standard Deviation 40.2 fL (35.1-43.9); Red Blood Count 5.45 Miln/mm3 (4.50-5.90); White Blood Count 7.8 Thou/mm3 (3.8-10.6)
[2024-12-29 06:35] LABS: Alanine Aminotransferase 29 U/L (10-49); Albumin, Serum 4.2 gm/dL (3.5-5.0); Albumin/Globulin Ratio 1.7 (1.2-2.2); Alkaline Phosphatase 97 U/L (46-116); Anion Gap 11 (7-16); Aspartate Amino Transferase 51 U/L (0-34); BUN/Creatinine Ratio 8 Ratio (12-20); Bilirubin,Total 0.9 mg/dL (0.3-1.2); Blood Urea Nitrogen 11 mg/dL (9-23); Calcium 9.0 mg/dL (8.3-10.6); Calcium (Corrected) 9.0 mg/dL (8.5-10.1); Carbon Dioxide 25.2 mMol/L (20.0-31.0); Chloride 104 mMol/L (98-107); Creatinine (Component) 1.4 mg/dL (0.6-1.3); Estimated Creatinine Clearance 104.6 mL/min (>60); Globulin 2.5 gm/dL (2.3-3.5); Glucose 102 mg/dL (74-106); Magnesium 1.9 mg/dL (1.6-2.6); Osmolality,Calculated 278 (275-295); Phosphorous 4.1 mg/dL (2.4-5.1); Potassium 4.1 mMol/L (3.4-5.1); Sodium 140 mMol/L (136-145); Total Protein 6.7 gm/dL (5.7-8.2); eGFR > 60 See Note
[2024-12-29] MEDS: Magnesium Sulfate 2 GM Ivpb 2 GM/50 ML BAG IV (08:46)
[2024-12-29] MEDS: SODIUM CHLORIDE 0.9% 1000 ML 1,000 ML 999 ML IV (08:46)
[2024-12-29] MEDS: ASPIRIN EC 81 MG TABEC PO (08:51)
[2024-12-29] MEDS: METOPROLOL TARTRATE 25 MG TABLET PO (09:13)
[2024-12-29 13:19] LABS: Anion Gap 8 (7-16); BUN/Creatinine Ratio 7 Ratio (12-20); Blood Urea Nitrogen 9 mg/dL (9-23); Calcium 9.0 mg/dL (8.3-10.6); Carbon Dioxide 28.9 mMol/L (20.0-31.0); Chloride 104 mMol/L (98-107); Creatinine (Component) 1.3 mg/dL (0.6-1.3); Estimated Creatinine Clearance 112.6 mL/min (>60); Glucose 102 mg/dL (74-106); Osmolality,Calculated 279 (275-295); Potassium 4.0 mMol/L (3.4-5.1); Sodium 141 mMol/L (136-145); eGFR > 60 See Note
--- NOTE | 2024-12-29 14:09 | PD.IMPROG ---
Documentation for date of: 12/29/24 Subjective Subjective Interval history: No further chest pain Cardiac cath does not show any significant coronary artery disease Okay to discharge from cardiac standpoint Exam Vital Signs Temp Pulse Resp BP Pulse Ox O2 Del Method 97.2 F 72 17 122/78 97 Room Air 12/29/24 13:30 12/29/24 13:30 12/29/24 13:30 12/29/24 13:30 12/29/24 13:30 12/29/24 13:30 Routine HEENT Exam Head: Present normocephalic and atraumatic Eye: Present EOMI and PERRL ENT: Present mucous membranes moist Routine Neck Exam Neck: Present supple and trachea midline Routine Respiratory Exam Respiratory: Present chest non-tender, lungs clear, normal breath sounds and no resp distress Routine Cardiovascular Exam Cardiovascular: Present RRR Routine Abdominal Exam Abdominal: Present soft and normoactive bowel sounds Routine Extremities Exam Extremities: Present full ROM Routine Skin Exam Skin: Present intact, dry and warm Routine Neurological Exam Neurological: Present alert, oriented X3 and CN II-XII intact Routine Psychiatric Exam Psychiatric: Present normal affect and normal thought process Objective Labs 12/29/24 05:18 12/29/24 12:31 Labs: Laboratory Results - last 24 hr 12/28/24 12/29/24 12/29/24 18:39 05:18 12:31 WBC 7.8 RBC 5.45 Hgb 15.9 Hct 47.2 MCV 87 MCH 29.2 MCHC 33.7 RDW Std Deviation 40.2 Plt Count 196 Neut % (Auto) 57 Lymph % (Auto) 23 [place] % (Auto) 17 H Eos % (Auto) 1 Baso % (Auto) 1 Neut # (Auto) 4.4 Lymph # (Auto) 1.8 [place] # (Auto) 1.4 H Eos # (Auto) 0.1 Baso # (Auto) 0.1 Immature Gran # (Auto) 0.07 H Absolute Nucleated RBC 0.00 Immature Gran % 1 H Nucleated RBC % 0 APTT 28.8 Sodium 140 141 Potassium 4.1 4.0 Chloride 104 104 Carbon Dioxide 25.2 28.9 Anion Gap 11 8 BUN 11 9 Creatinine 1.4 H 1.3 Estim Creat Clear Calc 104.6 112.6 eGFR > 60 > 60 BUN/Creatinine Ratio 8 L 7 L Glucose 102 102 Calculated Osmolality 278 279 Calcium 9.0 9.0 Corrected Calcium 9.0 Phosphorus 4.1 Magnesium 1.9 Total Bilirubin 0.9 AST 51 H ALT 29 Alkaline Phosphatase 97 Total Protein 6.7 Albumin 4.2 Globulin 2.5 Albumin/Globulin Ratio 1.7 Assessment & Plan A&P Narrative Patient's coronary angiogram does not show any significant coronary artery disease Okay to discharge from cardiac standpoint Time Spent With Patient Time: Total time spent is greater than 50% in coordination of care (as documented) at patient's floor/unit and/or counseling patient:
--- NOTE | 2024-12-29 14:31 | ESDS_ITS ---
<Statement entered by Catie Aguilera MD - 12/29/24 14:45> I discussed with and supervised the nurse intern physician who took care of this patient. I personally saw and examined the patient and discussed the assessment and plan with the entire medicine team, including my attending Dr. Olivas, I agree with most of the assessment and plan as documented below Catie Aguilera M.D. PGY-3 Disclaimer: Despite multiple revisions, due to the dictation software being used, the document bellow may not be free of grammatical errors including phonetic/typographic errors. However, this does not deter from our commitment to providing health care in the patient's best interest in mind. Planned Discharge Date 12/29/24 DS: Providers Provider Date of admission: 12/27/24 23:20 Primary care physician: Eric Bonilla MD Admitting Provider: Solo Garcia MD Attending Provider on Admission: Ishmael Oliavs MD Consults: 12/27/24 22:29 Consult to Cardiology Stat Comment: Consulting Provider: Man Melvin Instructions: NSTEMI Attending Provider on DC: Resident Latasha Discharging Provider: Resident Latasha DS: Diagnosis Problem List Completed Was Problem List Reviewed/Reconciled?: Yes Hospital Course Hospital Course Hospital course: Mr. Mota is a 24-year-old male with no past medical history, presented to the ED 12/27/2024 with chief complaint of chest pain with radiation to L arm that woke him up from his evening nap a few hours prior to ED arrival. Symptoms resolved by the time patient arrived to the ED. Admitted for ACS work up and management. Differentials included likely NSTEMI type II patient history exogenous testosterone use which can cause polycytemia, pro-thrombotic state and potentially vasospasm, all which may contribute to increase myocardial oxygen demand which may lead to myocardial ischemia. On admission: Troponin was 8.3 with repeat of 8.2 . EKG showed nonspecific ST- T wave abnormality. Lipid panel unremarkable. A1C 5.2. TSH 0.84. UDS negative. Cardiology was consulted and recommended taking the patient to [facility]. Patient was started on heparin gtt, statin, metoprolol, plavix and aspirin. Patient's coronary angiogram did not show any significant coronary artery disease and was cleared from cardiology standpoint for discharge with the recommendation of taking aspirin daily and follow up with cardiology in about a week for further medication management, TTE and if indicated further work up. Patient remained asymptomatic throughout his hospital stay and remained hemodynamically stable with stable vital signs. Patient was also noted to have elevated creatinine of 1.6 on admission from baseline of 1.1 which improved to 1.3 with IVF. His SKYLAR likely pre-renal seco ndary to dehydration. Risks of drug use and exogenous steroid use was exaplained to patients. Of note, patient noted that he was recently had a viral illness and had a fever for a couple of days prior to admission. Patient remained afebrile during his hospital stay except for one episode of 100.5. Patient is asymptomatic and was advised to test for Cocci if his symptoms returned or develop fevers. Advised patient to return to ED if develops fever, chills, shortness of breath, chest pain, etc. Patient is in stable condition for discharge and is hemodynamically stable with vital signs within normal limits. Patient will be discharged with aspirin 81 to be taken daily. All questions answered and strict ED return precautions discussed. #Acute chest pain #NSTEMI type I vs type II #Troponimia # Acute kidney injury, likely pre-renal (resolved) #Polycythemia #Steroid Abuse Please see Dr. Melvin, Cardiology and your PCP in 1 week. Please have an echocardiogram scheduled outpatient with cardiology. Avoid taking any supplements or Testosterone. Please repeat your labs in 1 week. Please continue to take daily Aspirin. Please return to the ED if your symptoms worsen. Plan was discussed with attending physician Dr. Olivas and senior residents Dr. Aguilera. Alis Butterfield DO PGY-1 Status at Discharge Functional status at discharge: independent ambulation Overall status at discharge: patient is back to baseline Time Spent with Patient Time attestation: Total time spent providing and/or coordinating discharge services: Time spent: Greater than 30 minutes Exam Vital Signs Temp Pulse Resp BP Pulse Ox O2 Del Method 97.2 F 72 17 122/78 97 Room Air 12/29/24 13:30 12/29/24 13:30 12/29/24 13:30 12/29/24 13:30 12/29/24 13:30 12/29/24 13:30 Narrative Exam General: Alert, no acute distress.Conversational and non-toxic appearing. Skin: Warm, dry, intact. No rash or ecchymoses. Head: Normocephalic, atraumatic. Eye: Normal conjunctiva, PERRL. Throat: Oral mucosa moist. No obvious lesions in oropharynx. Cardiovascular: Regular rate and rhythm, no murmur, +S1/S2. Respiratory: Lungs are clear to auscultation, respirations unlabored, no crackles, no wheezing. Gastrointestinal: Soft, nontender, non-distended. No guarding or rebound tenderness. Extremities: No edema, no cyanosis, no clubbing. Neuro: Alert and oriented x3.No focal deficits observed. Conversant, moving all extremities. No overt cerebellar signs/incoordination. Psychiatric: Cooperative, appropriate affect Discharge Plan Plan Patient Disposition: HOME (Self Care) Prescriptions/Referrals Prescriptions/Med Rec: New aspirin 81 mg Tablet,Delayed Release (Dr/Ec) 81 mg PO DAILY 30 Days Qty: 30 0RF Discontinued methocarbamol 750 mg tablet 750 mg PO QID PRN (Reason: muscle spasm) Patient Comments: TAKE 1 TABLET BY MOUTH FOUR TIMES DAILY NEEDED FOR MUSCLE SPASM Referrals: Chad (PCP)Eric MD [Primary Care Provider, Family Practice] Man Melvin MD [Physician, Cardiology] Patient/Caregiver Discharge Instructions Other Discharge Activity Instructions:: Please see Dr. Melvin, Cardiology and your PCP in 1 week. Please have an echocardiogram scheduled outpatient with cardiology. Avoid taking any supplements or Testosterone. Please repeat your labs in 1 week. Please continue to take daily Aspirin. Please return to the ED if your symptoms worsen. Print Language: Dutch Stand Alone Forms: [facility] Award Info., Patient Portal Info Letter Discharge Order Discharge Orders: Discharge (Routine); Ordered 12/29/24 Ordered By: Catie Aguilera Quality Discharge Quality Measures VTE therapy Attestestation MD Attestation I have examined the patient, reviewed labs and imaging findings, discussed the case with the resident(s), and reviewed entered orders. I agree with the plan of care as outlined in this note. Time Spent: [address] Deisy MD
== END 2024-12-29 13:52 | disposition home or self-care (01) | DRG 281 ==
LOC: SERX 22:33 → SERHOLD 23:34 → S2NX 12-28 02:42
PROVIDERS: Internal Medicine; Admitting Provider Student in an Organized Health Care Education/Training Program; Emergency Provider Emergency Medicine; PCP Family Medicine; Visit Provider Student in an Organized Health Care Education/Training Program
DX: I21.4 Non-ST elevation (NSTEMI) myocardial infarction (principal); N17.9 Acute kidney failure, unspecified; I24.9 Acute ischemic heart disease, unspecified; D75.1 Secondary polycythemia; F55.3 Abuse of steroids or hormones; I25.10 Atherosclerotic heart disease of native coronary artery without angina pectoris; Z79.02 Long term (current) use of antithrombotics/antiplatelets; Z79.82 Long term (current) use of aspirin; Z79.890 Hormone replacement therapy
CPT/HCPCS: 36415; 71045; 80048; 80053; 80061; 80307; 80320; 81001; 83036; 83735; 83880; 84100; 84443; 84484; 85025; 85379; 85610; 85730; 93005; 96365; 96366; 99284; J0168; J0461; J0583; J1643; J1644; J2250; J2312; J2371; J2405; J3010; J3475; J3490; J7030; A9270; G0480